=== PATIENT | male | born 1985 | race Two or more races ===

== ENCOUNTER 2018-04-18 16:18 | Outpatient (CLI) | payer OTHER | END 2018-04-18 16:21 | disposition home or self-care (01) | LOC: RAD 16:18 | DX: M25.571 Pain in right ankle and joints of right foot (principal) ==

== ENCOUNTER 2018-09-14 13:14 | Outpatient (CLI) | payer OTHER | END 2018-09-14 13:19 | disposition home or self-care (01) | LOC: RAD 501 13:14 | DX: M25.571 Pain in right ankle and joints of right foot (principal) ==